=== PATIENT | female | born 1945 | race Caucasian/White ===

== ENCOUNTER 2020-06-04 09:12 | Outpatient (CLI) | payer MEDICARE, SELFPAY ==
--- NOTE | ~2020-06-04 | XR_ITS ---
EXAMINATION: XR hip RT 2V w AP pelvis EXAM DATE: 06/04/2020 09:42 INDICATION: Posterior iliac crest chronic pain. TECHNIQUE: Right hip frontal, 'frog leg' projections for interpretation. Frontal projection pelvis. Comparison is made to prior examination from 10/24/2016. FINDINGS: Patient has had interval right hip replacement. Hardware is in expected position and no per iprosthetic lucency. 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 Sacrum, sacroiliac joints, sacral arcuate lines are intact. There are no acute fractures or dislocations identified. There is no subcutaneous gas. The soft tissue is unremarkable. IMPRESSION: 1. Interval right hip arthroplasty. 2. Mild left hip osteoarthritis. Reviewed, dictated and finalized at location B.
== END 2020-06-04 09:13 | disposition home or self-care (01) ==
LOC: ANHIMG 09:22
PROVIDERS: Visit Provider Specialist
DX: M25.551 Pain in right hip (principal); M16.12 Unilateral primary osteoarthritis, left hip; Z96.641 Presence of right artificial hip joint
CPT/HCPCS: 73502

== ENCOUNTER 2020-09-17 09:31 | Outpatient (NON) | payer MEDICARE, SELFPAY | END 2020-09-17 09:32 | PROVIDERS: Visit Provider Specialist | DX: L97.929 Non-pressure chronic ulcer of unspecified part of left lower leg with unspecified severity (principal) | CPT/HCPCS: 87070; 87077; 87186; 87205 ==